=== PATIENT | male | born 1995 | race Caucasian/White ===

== ENCOUNTER 2020-12-02 01:28 | Emergency (ER) | payer OTHER ==
[~2020-12-02] VITALS: Ht 180.3 cm; Wt 75.0 kg
[~2020-12-02 01:28] MED LIST: TRAM50TA4 PO
[2020-12-02 01:33] VITALS: BP 117/91
== END 2020-12-02 03:00 | disposition left against medical advice (07) ==
LOC: EMS 01:33
DX: S01.511A Laceration without foreign body of lip, initial encounter (principal); Y04.0XXA Assault by unarmed brawl or fight, initial encounter; Y93.89 Activity, other specified; Y92.89 Other specified places as the place of occurrence of the external cause; Y99.8 Other external cause status; Z53.21 Procedure and treatment not carried out due to patient leaving prior to being seen by health care provider